=== PATIENT | female | born 1955 | race Caucasian/White ===

== ENCOUNTER 2022-11-16 18:47 | Emergency (ER) | payer MEDICARE, SELFPAY ==
[2022-11-16 19:01] VITALS: BP 184/89; PULSE 79; RESP 16; TEMP 37.1; O2SAT 100; BMI 22.9
--- NOTE | 2022-11-16 19:32 | ED.GENADULT ---
HPI - General Adult General Time Seen by Provider: 19:32 Date Seen: 11/16/22 Chief complaint: Dizziness/Vertigo Stated complaint: Vertigo Time Seen by Provider: 11/16/22 18:58 Source: patient Mode of arrival: ambulatory Limitations: no limitations History of Present Illness HPI narrative: Patient is a 67 year white female has had a history of benign positional vertigo, she has had imaging studies of her head that was negative. She reports the last couple of days she has had some increasing dizziness, some vertiginous symptoms. She really does not have the room spinning but she does feel like she has to ?pin ball? back and forth between [place] in when she is walking. She has no headache no visual problem no neurologic complaints. She has had no fever chills or weight loss. She reports no sudden onset of headache. She reports she got better with some ?Valium? type medication in the past. Related Data Home Medications Medication Instructions Recorded Confirmed albuterol sulfate 90 mcg/actuation 2 puff inhalation QID PRN wheezing 11/16/22 11/16/22 aerosol inhaler hydrochlorothiazide 25 mg tablet 12.5 mg PO DAILY 11/16/22 11/16/22 Previous Rx's Medication Instructions Recorded meclizine 25 mg chewable tablet 12.5 mg PO TID PRN #10 tabs 11/16/22 (Antivert) meclizine 25 mg chewable tablet 12.5 mg PO TID PRN #10 tabs 11/16/22 (Antivert) Allergies Allergy/AdvReac Type Severity Reaction Status Date / Time Egg Derived Allergy Unknown Unknown Verified 11/16/22 19:00 Penicillins Allergy Unknown Unknown Verified 11/16/22 19:00 Review of Systems Status of ROS: Reports: 6 or more systems reviewed and unremarkable except as noted in History and below PFSH PFSH Social History Smoking Status: Never smoker How often do you have a drink containing alcohol: monthly or less AUDIT-C Alcohol total score: 1 Non-prescribed substance use: denies use service: No Exam Narrative: Exam Narrative: Objective: Vital signs show slightly elevated blood pressure Patient does have a history of hypertension she takes a blood pressure medication hydrochlorothiazide HEENT is unremarkable no facial asymmetry pupils react to light mouth clear neck is supple chest is clear no rales or wheezing heart rhythm regular heart murmur Neurologic in upper extremities unremarkable no abdominal pain Const: Vital Signs, click to edit/add: Vital Signs - 24 hr 11/16/22 19:01 11/16/22 20:56 11/16/22 20:59 Temperature 98.8 F Pulse Rate [Pulse Oximeter] 79 90 73 Respiratory Rate 16 18 18 Blood Pressure [Ri ght Upper Arm] 184/89 H Pulse Oximetry 100 100 Oxygen Delivery Me thod Room Air Room Air Course Vital Signs Vital signs: Initial Vital Signs Temperature 98.8 F 11/16/22 19:01 Temperature Source Temporal Artery Scan 11/16/22 19:01 Pulse Rate 79 11/16/22 19:01 Respiratory Rate 16 11/16/22 19:01 Blood Pressure 184/89 H 11/16/22 19:01 Blood Pressure Mean 120 11/16/22 19:01 Pulse Oximetry 100 11/16/22 19:01 Oxygen Delivery Method Room Air 11/16/22 19:01 Vital Signs Temperature 98.8 F 11/16/22 19:01 Pulse Rate 79 11/16/22 19:01 Respiratory Rate 16 11/16/22 19:01 Blood Pressure 184/89 H 11/16/22 19:01 Pulse Oximetry 100 11/16/22 19:01 Oxygen Delivery Method Room Air 11/16/22 19:01 Temperature 98.8 F 11/16/22 19:01 Pulse Rate 73 11/16/22 20:59 Respiratory Rate 18 11/16/22 20:59 Blood Pressure 184/89 H 11/16/22 19:01 Pulse Oximetry 100 11/16/22 20:56 Oxygen Delivery Method Room Air 11/16/22 20:56 Medical Decision Making [facility] Narrative Medical decision making narrative: Patient is a 67-year-old female with history of vertigo, has recurrent presentation. She has no worrisome stigmata of stroke, arrhythmia, or neurologic emergency. I think at this point we can simply treat her symptoms and give her IV fluid, IV Ativan, will call and Antivert to her pharmacy. Will check electrolytes EKG. Will observe her make sure she improves. I do not think we need to reimage promptly right away in the she gets worse. With she was comfortable this approach and wished to proceed. She does have a ride home with her . Addendum: Patient's EKG shows normal sinus rhythm limited R-wave progression anteriorly but no acute ST T wave changes. She has not had any chest pain. Her dizziness is markedly better with the fluid and the Ativan. I faxed in some Antivert for her to start tomorrow as needed. Light activity recommended. Cautioned about the sedative effect of Antivert. She should drink fluids rest light activity. She also reports she has had occasional tinnitus and she should discuss with her doctor regarding potential for Meniere's disease or other pathology. She has had a couple episodes of vertigo now. Tequila was comfortable with going home now and felt much improved and will take Antivert as needed this was faxed into her pharmacy recommend follow-up with regular doctor within the next week Lab Data Labs: Lab Results 11/16/22 Range/Units 19:40 WBC 5.53 (4.50-11.00) K/uL RBC 4.28 (4.00-5.20) m/uL Hgb 12.5 (12.0-16.0) gm/dL Hct 37.6 (33.0-51.0) % MCV 88 (80-100) fL MCH 29 (26-34) pg MCHC 33 (32-36) gm/dL RDW Coeff of Corin 12.6 (11.5-15.5) % Plt Count 259 (140-440) K/uL Neut % (Auto) 75.0 H (42.0-72.0) % Lymph % (Auto) 15.9 L (20-44) % [place] % (Auto) 6.3 (0.0-11.0) % Eos % (Auto) 0.9 (0.0-7.0) % Baso % (Auto) 0.5 (0.0-3.0) % Neut # (Auto) 4.10 (1.7-7.0) K/uL Lymph # (Auto) 0.90 (0.90-2.90) K/uL [place] # (Auto) 0.30 (0.00-0.90) K/UL Eos # (Auto) 0.05 (0.00-0.50) K/uL Baso # (Auto) 0.03 (0.00-0.30) K/uL Sodium 133 L (135-149) mmol/L Potassium 3.5 L (3.6-5.1) mmol/L Chloride 101 (96-114) mmol/L Carbon Dioxide 28 (20-32) mmol/L BUN 14 (7-30) mg/dL Creatinine 0.9 (0.5-1.5) mg/dL Estimated Creat Clear 45.16 Estimated GFR 70 ml/min Glucose 113 (60-115) mg/dL Calcium 9.2 (8.4-10.6) mg/dL C-Reactive Protein < 0.5 L (0.5-1.0) mg/dL Discharge Plan Discharge Clinical Impression: Vertigo Patient Disposition: Home w/ Parent or Adult Condition: Improved Additional Instructions: Light activity, fluids, Antivert as needed cautioned about sedative effect of the Antivert, follow-up with primary care in the next 2-3 days. Return to ED sooner problems or concerns. Activity Level: Light activity Discharge Diet: Regular Prescriptions: New meclizine [Antivert] 25 mg tablet,chewable 12.5 mg PO TID PRNQty: 10 0RF meclizine [Antivert] 25 mg tablet,chewable 12.5 mg PO TID PRNQty: 10 0RF No Action hydrochlorothiazide 25 mg tablet 12.5 mg PO DAILY albuterol sulfate 90 mcg/actuation HFA aerosol inhaler 2 puff INHALATION QID PRN (Reason: wheezing) Stand Alone Forms: MyHealth Info Instructions
[2022-11-16] MEDS: LORazepam 2 MG/ML inj 1 MG IVP (19:42)
[2022-11-16] MEDS: 0.9 % SODIUM CHLORIDE 1000 ml 1,000 ML 6000 ML IV (19:42)
[2022-11-16 20:06] LABS: Basophils Absolute Auto 0.03 K/uL (0.00-0.30); Basophils Percent Auto 0.5 % (0.0-3.0); Eosinophils Absolute Auto 0.05 K/uL (0.00-0.50); Eosinophils Percent Auto 0.9 % (0.0-7.0); Hematocrit 37.6 % (33.0-51.0); Hemoglobin* 12.5 gm/dL (12.0-16.0); Immature Granulocytes Abs Auto 0.08 K/uL (0.00-0.30); Immature Granulocytes Pct Auto 1.4 %; Lymphocytes Percent Auto 15.9 % (20-44); Mean Corpuscular HGB Conc 33 gm/dL (32-36); Mean Corpuscular Hemoglobin 29 pg (26-34); Mean Corpuscular Volume 88 fL (80-100); Monocytes Percent Auto 6.3 % (0.0-11.0); Platelet Count* 259 K/uL (140-440); RDW Coefficient of Variation % 12.6 % (11.5-15.5); Red Blood Count 4.28 m/uL (4.00-5.20); White Blood Count* 5.53 K/uL (4.50-11.00)
[2022-11-16 20:09] LABS: Slide Review Reflex No
[2022-11-16 20:15] LABS: Chloride* 101 mmol/L (96-114); Sodium* 133 mmol/L (135-149)
[2022-11-16 20:16] LABS: Potassium* 3.5 mmol/L (3.6-5.1)
[2022-11-16 20:18] LABS: Creatinine* 0.9 mg/dL (0.5-1.5); Est. Creatinine Clearance* 45.16; Estimated Glomerular Filt Rate 70 ml/min
[2022-11-16 20:19] LABS: Blood Urea Nitrogen* 14 mg/dL (7-30); Calcium* 9.2 mg/dL (8.4-10.6); Carbon Dioxide* 28 mmol/L (20-32); Glucose* 113 mg/dL (60-115)
[2022-11-16 20:27] LABS: C Reactive Protein* < 0.5 mg/dL (0.5-1.0)
[2022-11-16 20:56] VITALS: PULSE 90; RESP 18; O2SAT 100
[2022-11-16 20:59] VITALS: PULSE 73; RESP 18
== END 2022-11-16 21:01 | disposition home or self-care (01) ==
LOC: ED 20:09
PROVIDERS: Emergency Provider Family Medicine
DX: R42 Dizziness and giddiness (principal)
CPT/HCPCS: 36415; 80048; 85025; 86140; 93005; 99284; J2060; J7030